=== PATIENT | male | born 1950 | race Caucasian/White ===

== ENCOUNTER → 2016-11-03 | Outpatient (CLI) | payer OTHER ==
[~2016-11-03] MED LIST: AMT50 PO; ASPI81TA82 PO; CARB50TA3 PO; CRS/10 PO; CYAN500T13 PO; FOLI1TAB7 PO; MYCO500T4 PO; NVLGI7030 SC; PROP1TAB PO; RASA1TAB PO; RIFA300C3 PO; TACR1CAP PO; URSO1TAB10 PO
--- NOTE | 2016-11-03 10:23 | DIAGNOSTIC IMAGING REPORT ---
ULTRASOUND TO ASSESS FOR ASCITES CLINICAL HISTORY: Polycythemia vera. Ascites. COMPARISON STUDY: [facility] December 25, 2013. FINDINGS: No ascites is identified within the 4 quadrants. Borderline splenomegaly is unchanged. IMPRESSION: No ascites. Electronically signed by: Bart James M.D. 11/03/2016 10:21 AM Dictated Date/Time: 11/03/2016 10:18 AM
== END | disposition home or self-care (01) ==
LOC: C.ULTR 09:35
PROVIDERS: ATTEND Internal Medicine
DX: D45 Polycythemia vera (principal)